=== PATIENT | female | born 1985 | race Caucasian/White ===

== ENCOUNTER → 2020-02-07 | Outpatient (REF) | payer OTHER ==
[~2020-02-07] MED LIST: PRENTAB29; VENTAER INH
[2020-02-07 15:56] LABS: HEMATOCRIT 43.6 % (36.0-47.0); MEAN CORPUSCULAR HEMOGLOBIN 28.1 pg (27.0-33.0); MEAN CORPUSCULAR HGB CONC 32.1 g/dl (32.0-36.5); MEAN CORPUSCULAR VOLUME 87.4 fl (80.0-96.0); PLATELET COUNT, AUTOMATED 256 10^3/uL (150-450); RED BLOOD COUNT 4.99 10^6/uL (4.00-5.40); WHITE BLOOD COUNT 8.9 10^3/uL (4.0-10.0)
[2020-02-07 16:40] LABS: HEPATITIS C VIRUS ABY INDEX 0.1 INDEX (<0.8); HIV 1&2 SCREEN CENTAUR NEGATIVE (NEGATIVE)
[2020-02-07 22:13] LABS: CHLAMYDIA DNA AMPLIFICATION NEGATIVE (NEGATIVE); GC DNA AMPLIFICATION NEGATIVE (NEGATIVE)
== END ==
LOC: M PLALAB 13:32
PROVIDERS: ATTEND Advanced Practice Midwife
DX: O34.211 Maternal care for low transverse scar from previous cesarean delivery (principal); Z3A.00 Weeks of gestation of pregnancy not specified
CPT/HCPCS: 36415; 85027; 86762; 86780; 86803; 86850; 86900; 86901; 87086; 87340; 87389; 87491; 87591; G0463

== ENCOUNTER → 2020-03-20 | Outpatient (CLI) | payer OTHER ==
--- NOTE | 2020-05-01 07:21 | REP ---
OB ULTRASOUND ANATOMY SCAN: FINDINGS: Real time ultrasound evaluation of the gravid uterus is performed. There is a single living intrauterine gestation. Estimated gestational age based on last menstrual period is 18 weeks 4 days. Today's measurements appear to indicate appropriate growth, average ultrasound age 19 weeks 2 days with EDC 08/12/20. BIOMETRY CHART: BPD 45 mm 19 weeks 5 days Head circumference 167 mm 19 weeks 3 days Abdominal circumference 136 mm 19 weeks 1 day Femur length 29 mm 18 weeks 6 days Estimated weight is 269 grams, which is at the 70th percentile based on an estimated age of 18 weeks 4 days from the last menstrual period. position is cephalic. Placenta is anterior and grade 1 with no previa or abruption. The visualized anatomy today includes the posterior fossa, three vessel cord, lateral ventricles, stomach, cord insertion, thalami, kidneys, bladder and upper lip. The spine, four chamber heart and ventricular outflow tracts are not well visualized due to position. Amniotic fluid appears within normal limits. The cervix is closed and measures 4 cm in length. MTDD
== END ==
LOC: M RAD 15:23
PROVIDERS: ATTEND Advanced Practice Midwife
DX: Z34.82 Encounter for supervision of other normal pregnancy, second trimester (principal); Z3A.19 19 weeks gestation of pregnancy

== ENCOUNTER 2020-04-16 10:06 | Emergency (ER) | payer OTHER ==
[~2020-04-16] VITALS: Ht 160 cm; Wt 92.2 kg
[2020-04-16] MEDS ORDERED: PRENTAB29 (10:13)
[2020-04-16] MEDS ORDERED: ALBUTEROL 90 MCG/ACT 8GM HFA INHALER INH ONE (11:15)
--- NOTE | 2020-04-16 12:18 | REPVR ---
PROCEDURE INFORMATION: Exam: US Duplex Lower Extremity Veins, Bilateral Exam date and time: 04/16/2020 12:13 PM Age: 34 years old Clinical indication: Other: SOB, TECHNIQUE: Imaging protocol: Real-time duplex ultrasound of the extremities with 2-D wasserman scale, color Doppler flow and spectral waveform analysis with image documentation. Complete exam focused on the bilateral lower extremity veins. COMPARISON: No relevant prior studies available. FINDINGS: Right deep veins: The common femoral, duplicated femoral, proximal profunda femoral and popliteal veins are patent without thrombus. Normal Doppler waveforms. Normal compressibility and/or augmentation response. The posterior tibial vein in the calf is patent as well. Right superficial veins: Saphenofemoral junction is patent without thrombus. Left deep veins: Unremarkable. The common femoral, femoral, proximal profunda femoral and popliteal veins are patent without thrombus. Normal Doppler waveforms. Normal compressibility and/or augmentation response. The posterior tibial vein in the calf is patent as well. Left superficial veins: Saphenofemoral junction is patent without thrombus. Soft tissues: Unremarkable. IMPRESSION: No deep venous thrombus demonstrated in either lower extremity. Electronically signed by: Hunter Hollins On 04/16/2020 12:17:33 PM
[2020-04-16 13:52] LABS: BASO % 0.3 % (0.0-1.0); EOS # 0.2 10^3/uL (0.0-0.5); EOS % 1.7 % (0.0-3.0); HEMOGLOBIN 13.1 g/dl (12.0-15.5); LYMPH # 1.8 10^3/uL (1.5-5.0); LYMPH % 17.4 % (24.0-44.0); MEAN CORPUSCULAR HEMOGLOBIN 27.9 pg (27.0-33.0); MEAN CORPUSCULAR HGB CONC 32.8 g/dl (32.0-36.5); MEAN CORPUSCULAR VOLUME 85.3 fl (80.0-96.0); MONO # 0.5 10^3/uL (0.0-0.8); MONO % 4.5 % (0.0-5.0); NEUTROPHILS % 75.7 % (36.0-66.0); PLATELET COUNT, AUTOMATED 250 10^3/uL (150-450); RED BLOOD COUNT 4.69 10^6/uL (4.00-5.40); WHITE BLOOD COUNT 10.6 10^3/uL (4.0-10.0)
[2020-04-16 14:11] LABS: BLOOD UREA NITROGEN 6 MG/DL (7-18); CALCIUM LEVEL 8.9 MG/DL (8.5-10.1); CARBON DIOXIDE LEVEL 21 MEQ/L (21-32); CHLORIDE LEVEL 108 MEQ/L (98-107); GLOMERULAR FILTRATION RATE > 60.0 (>60); GLUCOSE, FASTING 71 MG/DL (70-100); NT-PRO BNP 62 PG/ML (<125); POTASSIUM SERUM 4.2 MEQ/L (3.5-5.1); SODIUM LEVEL 136 MEQ/L (136-145)
[2020-04-16] MEDS ORDERED: VENTAER INH (14:23)
[2020-04-16 14:30] VITALS: BP 105/68
== END 2020-04-16 14:42 | disposition home or self-care (01) ==
LOC: M ED 10:06
DX: O99.512 Diseases of the respiratory system complicating pregnancy, second trimester (principal); O26.812 Pregnancy related exhaustion and fatigue, second trimester; Z3A.22 22 weeks gestation of pregnancy; Z79.899 Other long term (current) drug therapy; Z79.51 Long term (current) use of inhaled steroids

== ENCOUNTER → 2020-04-30 | Outpatient (CLI) | payer OTHER ==
--- NOTE | 2020-05-09 10:56 | REP ---
OBSTETRIC SONOGRAPHY HISTORY: Follow up anatomy. Comparison study March 20, 2020. FINDINGS: Scanning through the gravid uterus demonstrates a single living intrauterine gestation in a cephalic lie. motion was observed, and heart rate was recorded at 144 beats per minute. An anterior grade 1 placenta was seen without evidence of previa or abruption. Amniotic fluid was subjectively normal. Closed cervical length was measured transabdominally at 4.5 cm. spine, four chamber heart, and left ventricular outflow tract views were visualized today and appeared normal. The following additional anatomic structures were identified and are felt to be unremarkable: Face and profile nose and lips, diaphragm, left-sided stomach, bilateral kidneys, urinary bladder, spine, three vessel cord. BIOMETRY CHART: BPD 6.3 cm 25 weeks 2 days Head Circumference 22.6 cm 24 weeks 5 days Abdominal Circumference 20.1 cm 24 weeks 5 days Femur Length 4.7 cm 25 weeks 5 days Humeral Length 4.1 cm 24 weeks 6 days HC/AC ratio normal 1.13. Cephalic index normal at 0.78. Estimated weight 771 grams, 1 pound 11 ounces, 73rd percentile for 24 weeks 3 days. IMPRESSION: Single living intrauterine gestation at 25 weeks 0 days by todays composite criteria. KRISHNA by todays criteria August 13, 2020. In conjunction with the prior study, anatomic survey is felt to be complete with the exception of right ventricular cardiac outflow tract view. MTDD
== END ==
LOC: M WHC 07:29
PROVIDERS: ATTEND Obstetrics & Gynecology
DX: Z34.92 Encounter for supervision of normal pregnancy, unspecified, second trimester (principal); Z3A.25 25 weeks gestation of pregnancy

== ENCOUNTER → 2020-06-10 | Outpatient (CLI) | payer OTHER ==
[2020-06-10 13:04] LABS: HEMATOCRIT 42.1 % (36.0-47.0); HEMOGLOBIN 13.4 g/dl (12.0-15.5); MEAN CORPUSCULAR HEMOGLOBIN 27.1 pg (27.0-33.0); MEAN CORPUSCULAR HGB CONC 31.8 g/dl (32.0-36.5); MEAN CORPUSCULAR VOLUME 85.1 fl (80.0-96.0); PLATELET COUNT, AUTOMATED 275 10^3/uL (150-450); RED BLOOD COUNT 4.95 10^6/uL (4.00-5.40); WHITE BLOOD COUNT 10.8 10^3/uL (4.0-10.0)
== END ==
LOC: M PLALAB 08:22
PROVIDERS: ATTEND Obstetrics & Gynecology
DX: Z34.82 Encounter for supervision of other normal pregnancy, second trimester (principal)
CPT/HCPCS: 36415; 82950; 85027; 86850; 86900; 86901; G0463

== ENCOUNTER → 2020-07-29 | Outpatient (REF) | payer OTHER | LOC: M SFHCWAGY 13:12 | PROVIDERS: ATTEND Obstetrics & Gynecology | DX: Z36.89 Encounter for other specified antenatal screening (principal); Z3A.37 37 weeks gestation of pregnancy | CPT/HCPCS: 87081; G0463 ==

== ENCOUNTER 2020-08-09 09:41 | Outpatient (CLI) | payer OTHER ==
[~2020-08-09] VITALS: Ht 160 cm; Wt 99.0 kg
[2020-08-09 09:59] VITALS: BP 126/78
--- NOTE | 2020-08-09 11:29 | IPNPDOC ---
Text Note Date of Service The patient was seen on 08/09/20. NOTE Subjective: Radha is a 35-year-old female who is a at 38.5 weeks gestation who presented to L&D with complaints of changes in movement. She reports having only 2 movements in the last 1 hour. Her has been complicated by a history of a primary section. She has a successful in 2019. She denies vaginal bleeding, current contractions or leaking of fluid. She reported some contractions last night but currently denies them. OB Hx: 2017: primary section at 41.4 weeks gestation of a living female weighting 9 lbs 10 oz.; 2019 of living male at 40.4 weeks gestation weighting 8 lbs 7 oz Medical Hx: goiter, varicella as a child Surgical Hx: section Family Hx: non-contributory Social Hx: , denies any history of STD, denies being a smoker, drug use or abuse or alcohol use during . Denies history of abuse. Objective: VS: see below. FHR: 130, moderate variability, positive accelerations, no decelerations. contractions: irregular. SVE: 1/thick/high, soft, midposition, no show. Bedside ultrasound done showing active fetus in cephalic presentation. ABDULLAHI 20.1 cm. Breathing motions also noted. APFT is normal and reassuring. Placenta anterior. Assessment: IUP at 38.5 weeks gestation, decreased movement, Category I FHR tracing. Plan: After being in department patient reported feeling multiple movements. She is reassured and discharged to home. She has an appointment this week in the office. Reviewed access to care, kick count, labor signs, and danger signs to report. VS,Fishbone, I+O VS, Fishbone, I+O Vital Signs Date Time Temp Pulse Resp B/P (MAP) Pulse Ox O2 Delivery O2 Flow Rate FiO2 08/09/20 10:00 96 08/09/20 09:59 98.0 16 126/78 (94) LUZ BLAND CNM Aug 09, 2020 11:29
== END 2020-08-09 11:15 | disposition home or self-care (01) ==
LOC: M LDO 09:41
PROVIDERS: ATTEND Advanced Practice Midwife
DX: O36.8130 Decreased fetal movements, third trimester, not applicable or unspecified (principal); Z3A.38 38 weeks gestation of pregnancy
CPT/HCPCS: 59025; 76815; G0378; G0463

== ENCOUNTER 2020-08-19 23:04 | Inpatient (IN) | payer OTHER ==
[~2020-08-19] VITALS: Ht 160 cm; Wt 101.9 kg
--- OUTSIDE RECORDS SUMMARY | 2020-08-19 23:08 | CCD ---
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 Name Role Phone BarretoLazarus michael Unavailable PROBLEMS Type Condition ICD9-CM Code [id number] Code Onset Dates Condition S tatus SNOMED Code Notes Problem Supervision of other normal Z34.80 Ac tive [id number] ALLERGIES No Known Allergies ENCOUNTERS from 1987 to 2020-06-25 Encounter Location Date Provider Diagnosis [facility] Breast [facility] [place] [address] Jun, Lazarus Barreto Maternal care due to low transverse uterine scar from previous delivery O34.211 and 30 weeks gestation of Z3A.30 IMMUNIZATIONS Vaccine Route Administration Date Status TDAP 0.5mL (Boostrix) IM Intramuscular Jun 24, 2020 Administe red SOCIAL HISTORY Tobacco Use: Social History Observation Description Date Details (start date - stop date) Never Smoker Sex Assigned At : Social History Observation Description Sex Assigned At Unknown Domestic Violence: Question Answer Notes Status: No history of abuse Alcohol Screening: Question Answer Notes Did you have a drink containing alcohol in the past year? Ye s Points 1 Interpretation Negative How often did you have six or more drinks on one occas ion in the past year? Never (0 points) How many drinks did you have on a typica l day when you were drinking in the past year? 1 or 2 (0 points) How often did you have a drink containing alcohol in t he past year? Monthly or less (1 point) Tobacco Use: Question Answer Notes Are you a: never smoker REASON FOR REFERRAL No Information VITAL SIGNS Weight 212.0 lbs Jun, Height 63 in Jun, BMI 37.554 kg/m2 Jun, Blood pressure systolic 112 mm Hg Jun, Blood pressure diastolic 76 mm Hg Jun, MEDICATIONS Medication SIG (Take, Route, Frequency, Duration) Notes Start Da te End Date Status Apple Cider Vinegar 500 MG as directed Orally Active 27-1 MG 1 tablet Orally Once a day Active Elderberry 575 MG/5ML as directed Orally Active PROCEDURES No Information RESULTS No Results REASON FOR VISIT 4 WK PN MEDICAL (GENERAL) HISTORY Type Description Date Medical History goiter Surgical History C section Hospitalization History childbirth Goals Section No Information Health Concerns No Information MEDICAL EQUIPMENT No Information MENTAL STATUS No Information FUNCTIONAL STATUS No Information ASSESSMENTS Encounter Date Diagnosis Assessment Notes Treatment Notes Treatm ent Clinical Notes Jun, Maternal care due to low tra nsverse uterine scar from previous delivery (ICD-10 - O34.211) Jun, 30 weeks gestation of (ICD-10 - Z3A.30 ) PLAN OF TREATMENT Next Appt Details 2 Weeks Reason:follow-up Provider Name:Christiano Sarabia 2020-07-11 11:40:00 AM, [address] [place] [address], [phone], Follow Up:2 Weeksfollow-up Insurance Providers Payer Name Payer Address Payer Phone Insured Name Patient Relati onship to Insured Coverage Start Date Coverage End Date [place] [phone] MAHIN LORA self
--- OUTSIDE RECORDS SUMMARY | 2020-08-19 23:08 | CCD ---
Author Author [facility] Organization [facility] Address Unknown Phone Unavailable Care Team Providers Care Assembler Flexible Leads Name Role Phone Billie Castanon Unavailable PROBLEMS Type Condition ICD9-CM Code ZRG05-DE Code Onset Dates Condition S tatus SNOMED Code Notes Problem Supervision of other normal Z34.80 Ac tive [id number] ALLERGIES No Known Allergies ENCOUNTERS from 1987 to 2020-06-26 Encounter Location Date Provider Diagnosis [facility] [address] [place] [phone] Jun, Billie Castanon IMMUNIZATIONS Vaccine Route Administration Date Status TDAP [...] REASON FOR REFERRAL No Information VITAL SIGNS No information MEDICATIONS Medication SIG (Take, Route, Frequency, Duration) Notes Start Da te End Date Status Apple Cider Vinegar 500 MG as directed Orally Active 27-1 MG 1 tablet Orally Once a day Active Elderberry 575 MG/5ML as directed Orally Active PROCEDURES No Information RESULTS No Results REASON FOR VISIT fell MEDICAL (GENERAL) HISTORY Type Description Date Medical History goiter Surgical History C section Hospitalization History childbirth Goals Section No Information Health Concerns No Information MEDICAL EQUIPMENT No Information MENTAL STATUS No Information FUNCTIONAL STATUS No Information ASSESSMENTS No Information PLAN OF TREATMENT Next Appt Details Provider Name:Christiano Adriana Sarabia, 2020-07-11 11:40:00 AM, [facility] [place], [address], Insurance Providers Payer Name Payer Address Payer Phone Insured Name Patient Relati onship to Insured Coverage Start Date Coverage End Date [place] [phone] MAHIN LORA self
--- OUTSIDE RECORDS SUMMARY | 2020-08-19 23:08 | CCD ---
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 Name Role Phone Christiano Sarabia Unavailable PROBLEMS Type Condition ICD9-CM Code SFW63-PE Code Onset Dates Condition S tatus SNOMED Code Notes Problem Supervision of other normal Z34.80 Ac tive [id number] ALLERGIES No Known Allergies ENCOUNTERS from 1987 to 2020-07-19 Encounter Location Date Provider Diagnosis [facility] Women[facility] Well[facility] and Breast Care [facility] [place] [address] Jul, Christiano Sarabia Maternal care for sc ar from previous delivery O34.219 and 34 weeks gestation of Z3A.34 IMMUNIZATIONS Vaccine Route Administration Date Status TDAP [...] FOR REFERRAL No Information VITAL SIGNS Weight 209.6 lbs Jul, Weight-kg 95.07 kg Jul, Height 63 in Jul, BMI 37.129 kg/m2 Jul, Blood pressure systolic 112 mm Hg Jul, Blood pressure diastolic 82 mm Hg Jul, MEDICATIONS Medication SIG (Take, Route, Frequency, Duration) Notes Start Da te End Date Status Elderberry 575 MG/5ML as directed Orally Active 27-1 MG 1 tablet Orally Once a day Active Apple Cider Vinegar 500 MG as directed Orally Active PROCEDURES No Information RESULTS No Results REASON FOR VISIT 2WK PN MEDICAL (GENERAL) HISTORY Type Description Date Medical History goiter Surgical History C section Hospitalization History childbirth Goals Section No Information Health Concerns No Information MEDICAL EQUIPMENT No Information MENTAL STATUS No Information FUNCTIONAL STATUS No Information ASSESSMENTS Encounter Date Diagnosis Assessment Notes Treatment Notes Treatm ent Clinical Notes Jul, Maternal care for scar from previous delivery (ICD-10 - O34.219) Jul, 34 weeks gestation of (ICD-10 - Z3A.34 ) PLAN OF TREATMENT Next Appt Details Provider Name:Lazarus Barreto, 10:20:00 AM, [address] [place] [address], [phone], Provider Name:Lazarus Barreto, 08:00:00 AM, [address] [place] [address], [phone], Provider Name:Guerda Hubbard, 2020-08-15 08:40:00 AM, [address] [place] [address], [phone], Insurance Providers Payer Name Payer Address Payer Phone Insured Name Patient Relati onship to Insured Coverage Start Date Coverage End Date [address] [phone] MAHIN LOR[place] self
--- OUTSIDE RECORDS SUMMARY | 2020-08-19 23:08 | CCD ---
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 Name Role Phone BarretoLazarus michael Unavailable PROBLEMS Type Condition ICD9-CM Code OCA49-JZ Code Onset Dates Condition S tatus SNOMED Code Notes Problem Supervision of other normal Z34.80 Ac tive [id number] ALLERGIES No Known Allergies ENCOUNTERS from 1987 to 2020-07-31 Encounter Location Date Provider Diagnosis [facility] Women's Wellness and Breast Care [facility] [place] [address] Jul, Lazarus Barreto Maternal care due to low transverse uterine scar from previous delivery O34.211 and 37 weeks gestation of Z3A.37 IMMUNIZATIONS Vaccine Route Administration Date Status TDAP [...] FOR REFERRAL No Information VITAL SIGNS Weight 215 lbs Jul, Height 63 in Jul, BMI 38.086 kg/m2 Jul, Blood pressure systolic 118 mm Hg Jul, Blood pressure diastolic 62 mm Hg Jul, MEDICATIONS Medication SIG (Take, Route, Frequency, Duration) Notes Start Da te End Date Status 27-1 MG 1 tablet Orally Once a day Active Apple Cider Vinegar 500 MG as directed Orally Active Elderberry 575 MG/5ML as directed Orally [...] Treatm ent Clinical Notes Jul, Maternal care due to low tra nsverse uterine scar from previous delivery (ICD-10 - O34.211) Jul, 37 weeks gestation of (ICD-10 - Z3A.37 ) PLAN OF TREATMENT Treatment Notes Test Name Order Date GROUP B STREP CULTURE 2020-07-31 Next Appt Details 1 Week Reason:follow-up Provider Name:Lazarus Barreto, 08:00:00 AM, [address] [place] [address], [phone], Provider Name:Guerda Hubbard, 2020-08-15 08:40:00 AM, [address] [place] [address], [phone], Follow Up:1 Weekfollow-up Insurance Providers Payer Name Payer Address Payer Phone Insured Name Patient Relati onship to Insured Coverage Start Date Coverage End Date [place] [phone] MAHIN LORA self
--- OUTSIDE RECORDS SUMMARY | 2020-08-19 23:08 | CCD ---
Author Author [facility] Organization [facility] Address Unknown Phone Unavailable Support Name Relationship Address Phone UE Next Of Kin Unknown Unavailable LUI LORA Next Of Kin [id number] [facility] [place] [address] LUI LORA [place], [place] Unavailable Re-disclosure Warning The records that you are about to access may contain information from federally-assisted alcohol or drug abuse programs. If such information is present, then the following federally mandated warning applies: This information has been disclosed to you from records protected by federal confidentiality rules (42 CFR part 2). The federal rules prohibit you from making any further disclosure of this information unless further disclosure is expressly permitted by the written consent of the person to whom it pertains or as otherwise permitted by 42 CFR part 2. A general authorization for the release of medical or other information is NOT sufficient for this purpose. The Federal rules restrict any use of the information to criminally investigate or prosecute any alcohol or drug abuse patient.The records that you are about to access may contain highly sensitive health information, the redisclosure of which is protected by Article 27-F of the [place] Public Health law. If you continue you may have access to information: Regarding HIV / AIDS; Provided by facilities licensed or operated by the [employer] Office of Mental Health; or Provided by the [employer] Office for People With Developmental Disabilities. If such information is present, then the following [employer] mandated warning applies: This information has been disclosed to you from confidential records which are protected by state law. State law prohibits you from making any further disclosure of this information without the specific written consent of the person to whom it pertains, or as otherwise permitted by law. Any unauthorized further disclosure in violation of state law may result in a fine or half-way sentence or both. A general authorization for the release of medical or other information is NOT sufficient authorization for further disc losure. Encounters Encounter Providers Location Date Indications Data Source(s ) ( ESTOB) [facility] [address] [place] [address] 08/05/2020 12:00:00 AM EST eCW1 ([facility]) ( ESTOB) [facility] [address] [place] [address] 07/29/2020 12:00:00 AM EST eCW1 ([facility]) ( ESTOB) [facility] [address] [place] [address] 07/11/2020 12:00:00 AM EST eCW1 ([facility]) Unknown [address] [facility] [address] 06/26/2020 12:00:00 AM EST eCW1 ([facility]) ( ESTOB) [facility] [address] [place] [address] 06/10/2020 12:00:00 AM EST eCW1 ([facility]) Immunizations Vaccine Date Status Description Data Source(s) Tdap 06/24/2020 09:08:00 AM EST completed e CW1 ([facility]) Tdap 06/24/2020 09:08:00 AM EST completed e CW1 ([facility]) Tdap 06/24/2020 09:08:00 AM EST completed e CW1 ([facility]) Tdap 06/24/2020 09:08:00 AM EST completed e CW1 ([facility]) Tdap 06/24/2020 09:08:00 AM EST completed e CW1 ([facility]) Insurance Providers Payer name Policy type / Coverage type Policy ID Covered democrat ID Covered democrat's relationship to enriquez Policy Enriquez Plan Information [facility] [id number] SP [id number] [facility] [id number] SP [id number] Problems, Conditions, and Diagnoses Code Display Name Description Problem Type Effective Dates Data Source(s) Z34.80 care Supervision of other normal Adriana kelley 02/06/2020 12:00:00 AM EDT eCW1 ([facility]) Social History Code Duration Value Status Description Data Source(s ) Smoking 08/12/2020 12:00:00 AM EST Never Smoker completed Never S moker eCW1 ([facility]) Smoking 07/26/2020 12:00:00 AM EST Never Smoker completed Never S moker eCW1 ([facility]) Smoking 07/01/2020 12:00:00 AM EST Never Smoker completed Never S moker eCW1 ([facility]) Smoking 06/20/2020 12:00:00 AM EST Never Smoker completed Never S moker eCW1 ([facility]) Smoking 06/20/2020 12:00:00 AM EST Never Smoker completed Never S moker eCW1 ([facility]) Vital Signs ID Date Data Source UNK Name Value Range Interpretation Code Description Data Source(s) Diastolic blood pressure 68 mm[Hg] 68 mm[Hg] eCW1 ([facility]) Systolic blood pressure 122 mm[Hg] 122 mm[Hg] e CW1 ([facility]) Body mass index (BMI) [Ratio] 38.26 kg/m2 38.26 kg/m2 W1 ([facility]) Body height 63 [in_i] 63 [in_i] W1 ([facility]) Body weight 216 [lb_av] 216 [lb_av] W1 ([facility]) Diastolic blood pressure 62 mm[Hg] 62 mm[Hg] eCW1 ([facility]) Systolic blood pressure 118 mm[Hg] 118 mm[Hg] e CW1 ([facility]) Body mass index (BMI) [Ratio] 38.086 kg/m2 38.0 86 kg/m2 W1 ([facility]) Body height 63 [in_i] 63 [in_i] W1 ([facility]) Body weight 215 [lb_av] 215 [lb_av] W1 ([facility]) Diastolic blood pressure 82 mm[Hg] 82 mm[Hg] eCW1 ([facility]) Systolic blood pressure 112 mm[Hg] 112 mm[Hg] e CW1 ([facility]) Body mass index (BMI) [Ratio] 37.129 kg/m2 37.1 29 kg/m2 eCW1 ([facility]) Body height 63 [in_i] 63 [in_i] eCW1 ([facility]) Body weight 95.07 kg 95.07 kg W1 ([facility]) Body weight 209.6 [lb_av] 209.6 [lb_av] eCW1 ([facility]) Diastolic blood pressure 76 mm[Hg] 76 mm[Hg] eCW1 ([facility]) Systolic blood pressure 112 mm[Hg] 112 mm[Hg] e CW1 ([facility]) Body mass index (BMI) [Ratio] 37.554 kg/m2 37.5 54 kg/m2 W1 ([facility]) Body height 63 [in_i] 63 [in_i] eCW1 ([facility]) Body weight 212.0 [lb_av] 212.0 [lb_av] eCW1 ([facility])
--- OUTSIDE RECORDS SUMMARY | 2020-08-19 23:08 | CCD ---
Author Author [facility] Organization [facility] Address Unknown Phone Unavailable Care Team Providers Care Healthcare Interpreter Name Role Phone BarretoLazarus michael Unavailable PROBLEMS Type Condition ICD9-CM Code RWH59-GT Code Onset Dates Condition S tatus SNOMED Code Notes Problem Supervision of other normal Z34.80 Ac tive [id number] ALLERGIES No Known Allergies ENCOUNTERS from 1987 to 2020-08-14 Encounter Location Date Provider Diagnosis [facility] [place] [address] Jul, Lazarus Barreto Maternal care due to low transverse uterine scar from previous delivery O34.211 and 38 weeks gestation of Z3A.38 IMMUNIZATIONS Vaccine Route Administration Date Status TDAP [...] FOR REFERRAL No Information VITAL SIGNS Weight 216 lbs Jul, Height 63 in Jul, BMI 38.26 kg/m2 Jul, Blood pressure systolic 122 mm Hg Jul, Blood pressure diastolic 68 mm Hg Jul, MEDICATIONS Medication SIG (Take, Route, Frequency, Duration) Notes Start Da te End Date Status Elderberry 575 MG/5ML as directed Orally Active Apple Cider Vinegar 500 MG as directed Orally Active 27-1 MG 1 tablet Orally Once a day Active PROCEDURES No Information RESULTS No Results REASON FOR VISIT 1WK PN MEDICAL (GENERAL) HISTORY Type Description Date [...] from previous delivery (ICD-10 - O34.211) Jul, 38 weeks gestation of (ICD-10 - Z3A.38 ) PLAN OF TREATMENT Next Appt Details Provider Name:Guerda Hubbard, 2020-08-15 08:40:00 AM, [address] [place] [address], [phone], Insurance Providers Payer Name Payer Address Payer Phone Insured Name Patient Relati onship to Insured Coverage Start Date Coverage End Date [place] [phone] MAHIN LORA self
[2020-08-20] VITALS (8 sets, daily range): BP systolic 113–139; BP diastolic 56–63
[2020-08-20] MEDS ORDERED: LACTATED RINGER'S 1000 ML IV STA (00:07)
[2020-08-20] MEDS ORDERED: LR 1,000 ML IV SCH ×3 (00:07→05:00)
[2020-08-20] MEDS ORDERED: OXYTOCIN DRIP 30 UNITS in IV 1 EA IV SCH ×2 (00:15→04:34)
--- NOTE | 2020-08-20 00:29 | HPEPDOC ---
Obstetrical History & Physical General Date of Admission Aug 19, 2020 at 23:04 Primary Care Physician: LUZ BLAND CNM History of Present Illness Radha is a 35 y/o at 40.1 weeks KRISHNA 08/18/20 by LMP. She started care in the first trimester at [facility]. has been uncomplicated. Presents to L&D today for IOL for history of macrosomia and TOLAC. Previous C/Section with 1st , then with 2nd . Reports active movement and BH contractions. Denies LOF, vaginal bleeding, visual changes, headache, SOB, and chest pain. Chief Complaint: Induction of labor (TOLAC, history of macrosomia) Information Provided By: Patient Age: 35 : 3 Term: 2 Pre-term: 0 Abortions: 0 Livin Care Care: Good Care Dating Final EDC: Aug 18, 2019 Final EDC by: LMP LMP: Nov 12, 2019 EGA at Admission: 40.1 Antepartum Course Height (inches): 63 Past Medical History Past Obstetrical History #1: Past Obstetrical History: Primgravida (2017) Type of Delivery: Ceserean section (2017 Posterior position- pushed for 4hrs) Sex of Infant: Female (9lb 10oz.) Past Obstetrical History #2: Past Obstetrical History: Multigravida Type of Delivery: Spontaneous Vaginal Del. ( 2018) Sex of Infant: Male (8lb. 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 Surgical History: section (2016) Family History Significant Family History: No pertinent family hx Social History Marital Status: Family situation: Spouse/partner home Psychosocial History: No pertinent psych hx * Smoker: non-smoker Alcohol: Denies Drugs: denies Imunizations Tdap status: current Influenza Status: current Allergies Coded Allergies: No Known Allergies (Unverified , 04/16/20) Medications Miscellaneous Medications [] Physical Examination Physical Examination GENERAL: Alert and oriented times three. ABDOMEN: Gravid and non-tender to touch. FETUS: Is vertex (VTX) by sterile vaginal examination (SVE), fetus is vertex (VTX) by Ezekiel. EFW 8.5-9lbs by Sissy. HEART RATE: Regular rate and rhythm. LUNGS: Clear to auscultation (CTA) bilaterally. EXTREMITIES: No edema. No clonus. Deep tendon reflexes (DTRs) + 2. Laboratory Data 24H LABS Laboratory Tests 2 08/19/20 23:12: Serology Scanned Report Hepatitis B Testing Urine Culture: No Growth Pertinent Laboratoy Data Blood Type: O+ RBC Antibody Screen: Negative HIV: Negative Hepatitis B: Negative Hepatitis C: Negative Rapid Plasma Reagin: Nonreactive Rubella: Immune Varicella: Nonreactive Chlamydia/Gonorrhea: Negative Group B Streptococcus: Negative Glucose Tolerance Test: 85 Steroid Therapy Steroid Therapy: No Vaginal Examination Dilation: 3 cm Effacement: 50% Station: -2 Cervical Consistency: Soft Cervical Position: Middle Presentation: Cephalic presentation Assessment Heart Rate (FHR): 130 Variability: Moderate Accelerations: Positive Decelerations: None Tocometer Contractions: Yes Frequency: irregular, other (6-9min.) Duration: greater than 60 seconds Strength: palpated as mild, resting tone palp/soft Multi-drug resistant Organism: No history of MDRO Assessment/Plan Assessment IUP at 40.1wks. TOLAC, previous successful Category 1 FHT GBS Negative Plan Admit and orient to Labor and Delivery, Dr. Bautista aware of patient in the depa rtment. Activity as tolerated Diet: Clear liquids. Group B Streptococcus (GBS) negative. Labs and intravenous (IV) per unit protocol. Counseled on Pitocin and Turcios bulb for induction of labor (IOL). Cook's catheter inserted and 70/30mL NS and IV Pitocin to start per order. Reviewed risks, benefits, and alternatives of a TOLAC versus a Repeat C/Section Lactated Ringers (LR): Bolus 800 mL prior to epidural. Anesthesia consult per patient request. Anticipate normal spontaneous delivery (). C-S as appropriate. LUZ BLAND CNM Aug 20, 2020 00:07
[2020-08-20 00:52] LABS: HEMATOCRIT 39.9 % (36.0-47.0); HEMOGLOBIN 12.5 g/dl (12.0-15.5); MEAN CORPUSCULAR HEMOGLOBIN 25.6 pg (27.0-33.0); MEAN CORPUSCULAR HGB CONC 31.3 g/dl (32.0-36.5); MEAN CORPUSCULAR VOLUME 81.8 fl (80.0-96.0); PLATELET COUNT, AUTOMATED 280 10^3/uL (150-450); RED BLOOD COUNT 4.88 10^6/uL (4.00-5.40); WHITE BLOOD COUNT 11.5 10^3/uL (4.0-10.0)
[2020-08-20 01:21] LABS: FREE T4 1.28 NG/DL (0.76-1.46); THYROID STIMULATING HORMONE < 0.005 uIU/ML (0.358-3.740)
[2020-08-20] MEDS ORDERED: ceFAZolin 2 GM/D5W 50 ML IV BAG (J0690 PER 500MG) As Ordered ONE (03:30)
[2020-08-20] MEDS ORDERED: fentaNYL 100 MCG/2 ML INJECTION (J3010) As Ordered ONE ×3 (03:47→04:44)
[2020-08-20] MEDS ORDERED: ACETAMINOPHEN 1000MG 100ML IV BTL (OFIRMEV) (J0131 PER 10MG) As Ordered ONE (03:47)
[2020-08-20] MEDS ORDERED: propofoL 200 MG/20 ML VIAL As Ordered ONE (03:47)
[2020-08-20] MEDS ORDERED: OXYTOCIN INJ 10 UNITS/ML VIAL (J2590) As Ordered ONE (03:47)
[2020-08-20] MEDS ORDERED: SUCCINYLCHOLINE 100 MG/5 ML SYRINGE (J0330) As Ordered ONE (03:47)
[2020-08-20 03:55] LABS: CORD GAS ABE V -1.7; CORD GAS HCO3 V 24.2 MEQ/L; CORD GAS O2 SAT V 90.5 %; CORD GAS PCO2 V 45.1 mmHg; CORD GAS PH V 7.347 UNITS; CORD GAS PO2 V 48.2 mmHg; CORD GAS SBC V 22.9 MEQ/L; CORD GAS TCO2 V 25.6 MEQ/L
[2020-08-20] MEDS ORDERED: ONDANSETRON 4MG/2ML VIAL As Ordered ONE (03:56)
[2020-08-20] MEDS ORDERED: dexameTHASONE 4 MG/ML 1ML VIAL (J1100 PER 1MG) As Ordered ONE (03:56)
[2020-08-20] MEDS ORDERED: MORPHINE PRES-FREE INJ 10 MG/10 ML VIAL (J2274) As Ordered ONE (04:03)
[2020-08-20] MEDS ORDERED: KETOROLAC 60MG 2ML VIAL As Ordered ONE (04:04)
--- NOTE | 2020-08-20 04:22 | IPNPDOC ---
Obstetrical Progress Note Date of Service Aug 20, 2020 Subjective Patient breathing through contractions, getting uncomfortable. Dr. Bautista called for non-reassuring FHR tracing after multiple attempts to recover FHR with IV Fluid bolus, position changes, and oxygen at 0247 to evaluate patient. Patient received Pitocin for less than 30min, then shut off. Assessment Heart Rate (FHR): 130 Variability: Minimal to moderate Accelerations: None Decelerations: Variable (deceleration to the 60s) Heart Rate Tracing: Category II Tocometer Contractions: Yes Frequency: regular, every 2-5 min. Duration: greater than 60 seconds Strength: palpated as moderate, resting tone palp/soft Sterile Vaginal Examination Dilation: 5 cm (5-6) Effacement (%): 60% Station: Other (High) Cervical Consistency: Soft Cervical Position: Middle Postion/Presentation: Cephalic presentation Assessment and Plan Age: 35 : 3 Term: 2 Pre-term: 0 Abortions: 0 Livin EGA at Admission: 40.1 Weeks & Days 40.2 Status: Non-reassuring Group B Streptococcus: Negative LUZ BLAND CNM Aug 20, 2020 04:22
[2020-08-20] MEDS ORDERED: oxyCODONE 5MG TAB As Ordered ONE (04:44)
[2020-08-20] MEDS ORDERED: KETOROLAC 30 MG/ML 1ML VIAL IV SCH (04:45)
[2020-08-20] MEDS ORDERED: ONDANSETRON 4MG/2ML VIAL IV PRN ×2 (04:45→05:00)
[2020-08-20] MEDS ORDERED: PERCOCET 5MG/325MG TAB PO PRN (04:45)
[2020-08-20] MEDS ORDERED: METHYLERGONOVINE MALEATE 0.2 MG TAB PO PRN (04:45)
[2020-08-20] MEDS ORDERED: MORPHINE 2 MG/ML 1ML VIAL (J2270) IV PRN ×2 (04:45→05:00)
[2020-08-20] MEDS ORDERED: MOM 30ML SUSPENSION UDC PO PRN (04:45)
[2020-08-20] MEDS ORDERED: RHOGAM 300 MCG (1500 IU) INJ (J2790) IM SCH (04:45)
[2020-08-20] MEDS ORDERED: ANUSOL HC CREAM 30GM TOP PRN (04:45)
[2020-08-20] MEDS ORDERED: MEASLES,MUMPS,RUBELLA VACCINE INJ (MMR-II) (90707) SC SCH (04:45)
[2020-08-20] MEDS ORDERED: ceFAZolin SOD 2 GM in IV 1 EA IV ONE (04:55)
--- NOTE | 2020-08-20 04:55 | REPVR ---
PROCEDURE INFORMATION: Exam: XR Abdomen, 1 View Exam date and time: 08/20/2020 4:24 AM Age: 35 years old Clinical indication: Screening exam; Post surgical status; Stat , no count; Additional info: S/P stat section TECHNIQUE: Imaging protocol: XR of the abdomen. Views: Frontal supine view of the abdomen. 1 View. COMPARISON: No relevant prior studies available. FINDINGS: Gastrointestinal tract: Normal. No bowel dilation. Bones/joints: There is widening of the symphysis pubis measuring 1.2 centimetres IMPRESSION: Diastasis of the symphysis pubis measuring up to 1.2 cm in width. No obvious bony fracture seen on this exam although overall evaluation is limited due to body habitus. Electronically signed by: Dean Junior On 08/20/2020 04:56:10 AM
[2020-08-20] MEDS ORDERED: fentaNYL 100 MCG/2 ML INJECTION (J3010) IV PRN (05:00)
[2020-08-20] MEDS ORDERED: oxyCODONE 5MG TAB PO PRN (05:00)
[2020-08-20] MEDS ORDERED: OXYTOCIN 30 UNITS IN 0.9% NaCl 500ML IV BAG (J2590) As Ordered ONE (05:04)
[2020-08-20] MEDS: DOCUSATE SODIUM 100MG CAPSULE PO SCH ×2 (07:52→21:28)
[2020-08-20] MEDS: PRENATAL VITAMINS CHEWABLE TABLET PO SCH (07:53)
[2020-08-20] MEDS: PERCOCET 5MG/325MG TAB PO PRN ×3 (07:53→20:07)
--- NOTE | 2020-08-20 09:36 | RO ---
OPERATIVE NOTE DATE OF OPERATION: 08/20/2020 Juhi is a 35-year-old female who was admitted at 40-3/7 weeks of gestation for trial of labor after section. She underwent Turcios bulb and had some repetitive late decelerations. I was called by the nurse radiologic technician to evaluate the patient. Upon my arrival artificial rupture of membranes was performed to place internal monitors. Thick meconium was noted and also cord prolapse. Given her non-reassuring heart rate tracing and thick meconium remote from delivery the decision was made at this time to proceed with emergent section. Both patient and her partner were counseled. She was then taken to the operating room. PREOPERATIVE DIAGNOSES: 1. Intrauterine at 40-3/7 weeks of gestation with history of prior section. 2. Failed trial of labor after section. 3. Non-reassuring heart rate tracing. 4. Thick meconium. 5. Cord prolapse. POSTOPERATIVE DIAGNOSES: 1. Intrauterine at 40-3/7 weeks of gestation with history of prior section. 2. Failed trial of labor after section. 3. Non-reassuring heart rate tracing. 4. Thick meconium. 5. Cord prolapse. PROCEDURES: 1. Repeat section. 2. Revision of old scar. ANESTHESIA: General. SURGEON: Jesus Bautista MD PERSONNEL CLERK: Steff Bethea CNM COMPLICATIONS: None. ESTIMATED BLOOD LOSS: 700 mL. FINDINGS: Male infant in occiput transverse position, Apgars 2, 4, 8, weight 8 pounds 3 ounces. Normal appearing tubes and ovaries. We were unable to obtain arterial cord gas but venous cord gas was done of 7.21. PROCEDURE: After discussing the procedure with the patient and obtaining informed consent, she was taken to the operating room where abdominal prep was done and general anesthesia was given. We then proceeded with incision over her old scar, down to the fascia. With the help of Steff Bethea with giving proper pressures from below, I then opened the fascia as well as the muscles in midline fashion, peritoneal cavity was entered, Mobius skin retractor was placed. Low transverse uterine incision was made, was delivered atraumatic fashion. The nose and mouth were bulb suctioned, cord doubly clamped and cut and infant was handed over to waiting warmer. Cord blood and cord gas were sent. Steff Bethea rescrubbed and came back to the patient side to assist with the section. We then closed the uterine incision in two layers of #0 Vicryl sutures. Pelvis was copiously irrigated with normal saline and suctioned out. Attention was turned to the peritoneum which was closed in running fashion using 2-0 Vicryl, fascia closed in two separate segments of #0 Vicryl sutures. All superficial bleeders were coagulated and the skin was then reapproximated in subcuticular fashion using 3-0 Vicryl on Cuco. Steri-Strips were placed. The patient tolerated the procedure well, she was transferred to the recovery room in stable condition. cc: [facility]
[2020-08-20] MEDS: KETOROLAC 30 MG/ML 1ML VIAL IV SCH ×3 (09:58→21:28)
[2020-08-21] MEDS: PERCOCET 5MG/325MG TAB PO PRN ×3 (01:32→15:35)
[2020-08-21 02:15] VITALS: BP 111/53
[2020-08-21] MEDS: IBUPROFEN 800 MG TAB PO SCH ×3 (05:54→21:51)
[2020-08-21 06:25] VITALS: BP 103/68
--- NOTE | 2020-08-21 06:38 | IPNPDOC ---
Progress Note Date of Service: Aug 21, 2020 Day#: 1 Progress Note SUBJECT: Doing well without complaints. Ambulating, voiding and pain is well-c ontrolled. Reports minimal lochia. OBJECTIVE: VITAL SIGNS: Within normal limits, afebrile. Alert and oriented times three. Abdomen: Fundus firm at U-2. Soft, NTTP. Incision: dressed Ext: neg calf tenderness. ASSESSMENT: /postoperative day #1 status post delivery. Recovering in stable condition. PLAN: 1. Continue routine /postoperative care 2. Discharge plans for tomorrow VS, I&O, 24H, Fishbone Vital Signs/I&O Vital Signs Date Time Temp Pulse Resp B/P (MAP) Pulse Ox O2 Delivery O2 Flow Rate FiO2 08/21/20 06:25 98.1 100 18 103/68 (80) 08/21/20 02:15 99 Room Air 08/20/20 04:50 2 I&O- Last 24 Hours up to 6 AM 08/21/20 06:00 Output Total 1000 ml Balance -1000 ml CHACE DIXON MD. Aug 21, 2020 06:38
[2020-08-21] MEDS: PRENATAL VITAMINS CHEWABLE TABLET PO SCH (07:49)
[2020-08-21] MEDS: DOCUSATE SODIUM 100MG CAPSULE PO SCH ×2 (07:49→21:51)
[2020-08-21 08:25] LABS: HEMATOCRIT 26.6 % (36.0-47.0); MEAN CORPUSCULAR HEMOGLOBIN 25.7 pg (27.0-33.0); MEAN CORPUSCULAR HGB CONC 30.1 g/dl (32.0-36.5); MEAN CORPUSCULAR VOLUME 85.5 fl (80.0-96.0); PLATELET COUNT, AUTOMATED 215 10^3/uL (150-450); RED BLOOD COUNT 3.11 10^6/uL (4.00-5.40); WHITE BLOOD COUNT 13.4 10^3/uL (4.0-10.0)
[2020-08-21 10:00] VITALS: BP 100/55
[2020-08-21 13:59] VITALS: BP 118/63
[2020-08-21 18:00] VITALS: BP 132/67
[2020-08-21 22:00] VITALS: BP 117/59
[2020-08-22 02:00] VITALS: BP 119/78
[2020-08-22] MEDS: PERCOCET 5MG/325MG TAB PO PRN ×4 (02:13→17:03)
[2020-08-22] MEDS: IBUPROFEN 800 MG TAB PO SCH ×2 (05:33→14:18)
[2020-08-22 06:00] VITALS: BP 112/68
[2020-08-22] MEDS: DOCUSATE SODIUM 100MG CAPSULE PO SCH (08:14)
[2020-08-22] MEDS: PRENATAL VITAMINS CHEWABLE TABLET PO SCH (08:14)
[2020-08-22 08:39] VITALS: BP 112/68
--- NOTE | 2020-08-22 14:42 | DSES ---
DISCHARGE SUMMARY DATE OF ADMISSION: 08/19/2020 DATE OF DISCHARGE: / / DISCHARGE DIAGNOSES: Repeat section postoperative day #2 stable condition. SURGEON: Jesus Bautista DO VULCANIZING MACHINE OPERATOR: Steff Bethea CNM HISTORY: Juhi is a 35-year-old, 3, para 3-0-0-3 now, who underwent a stat repeat section under general anesthesia on 08/19/2020 due to a prolapsed cord and thick meconium fluid. Surgery was uncomplicated. She did deliver a live male that weighed 8 pounds, 3 ounces, scores 2, 4, and 8. Estimated blood loss 700 mL. Her postoperative course has been uncomplicated. She has been out of bed for self-care, perineal care, and infant care. She is tolerating by mouth fluids and a regular diet. She is voiding without difficulty, passing flatus, and her pain has been well managed with by mouth pain medications. OBJECTIVE: Temperature 98.1, pulse 98, respirations 18, blood pressure is 112/68. Preoperative CBC: Hemoglobin 12.5, hematocrit 39.9, and platelets 280. Postoperative CBC: Hemoglobin 8, hematocrit 26.6, platelets 215. She does deny headache, dizziness, heart palpitations. Her breasts are soft, nontender, nipples are intact. Abdomen: Fundus firm at one finger breadth below umbilicus. The incision has Steri-Strips in place, there is no drainage, no edema, and no redness noted. Perineum is intact. Lochia rubra scant. Bilateral lower extremities with trace pitting edema. PLAN: Discharge the patient to home today. She is to followup at [facility] for a 2 week incision check and an 8 week visit. I did review discharge instructions that include breast care, incision care, perineal care, pelvic rest, activity and lifting restrictions, access to care, and danger signs to report to her provider. Prescription for ibuprofen and Percocet have been prescribed for her to take to her pharmacy.
== END 2020-08-22 17:40 | disposition home or self-care (01) | DRG 773 ==
LOC: M LDI 23:04 → M OBS 08-20 05:46
PROVIDERS: ADMIT Advanced Practice Midwife; ATTEND Obstetrics & Gynecology
PROC: 3E033VJ Introduction of Other Hormone into Peripheral Vein, Percutaneous Approach (ICD-10-PCS; 2020-08-20)
PROC: 10907ZC Drainage of Amniotic Fluid, Therapeutic from Products of Conception, Via Natural or Artificial Opening (ICD-10-PCS; 2020-08-20)
PROC: 10D00Z1 Extraction of Products of Conception, Low, Open Approach (ICD-10-PCS; principal; 2020-08-20 04:33)
DX: O34.211 Maternal care for low transverse scar from previous cesarean delivery (principal); Z3A.40 40 weeks gestation of pregnancy; Z37.0 Single live birth; O48.0 Post-term pregnancy; O76 Abnormality in fetal heart rate and rhythm complicating labor and delivery; O77.0 Labor and delivery complicated by meconium in amniotic fluid; O69.0XX0 Labor and delivery complicated by prolapse of cord, not applicable or unspecified; O66.41 Failed attempted vaginal birth after previous cesarean delivery

== ENCOUNTER → 2020-11-08 | Outpatient (REF) | payer OTHER ==
[2020-11-08 15:49] LABS: FREE T3 5.2 PG/ML (2.2-4.0); FREE THYROXINE INDEX 3.2 % (1.3-4.8); T UPTAKE 34 % (30-39); THYROXINE (T4) 9.5 UG/DL (4.5-12.0)
[2020-11-08 15:54] LABS: THYROGLOBULIN ANTIBODY < 15.0 U/ML (<60.0); TOTAL T3 204.7 NG/DL (60.0-181.0)
[2020-11-12 10:07] LABS: THRYOGLOBULIN ANTIBODIES (ATA) < 1.0 IU/mL (0.0-0.9); THYROGLOBULIN QUANTITATIVE 64.6 ng/mL (1.5-38.5)
== END ==
LOC: M PLALAB 13:50
PROVIDERS: ATTEND Advanced Practice Midwife
DX: E04.9 Nontoxic goiter, unspecified (principal)

== ENCOUNTER → 2020-11-08 | Outpatient (CLI) | payer OTHER ==
--- NOTE | 2020-11-08 16:15 | REP ---
INDICATION: GOITER. COMPARISON: None. TECHNIQUE: Standard grayscale and color imaging techniques FINDINGS: Right lobe of the thyroid measures 7.3 x 3.3 x 4.7 cm and the left lobe 5.9 x 1.4 x 1.9 cm. Both lobes are heterogeneous throughout and have multiple nodules. Isthmus has a thickness of 3.5 mm. The right side largest nodule measures 4.5 x 3.9 x 3 cm and is predominantly cystic. It has some nodular components marginally. Another complex nodule 2.6 x 2.2 x 1.7 cm is seen above this and is solid and cystic, predominantly solid. Few scattered echogenic foci representing some calcifications noted The left lobe has numerous nodules and the 3 largest include a complex predominantly cystic nodule 1.3 x 1 x 0.9 cm in the upper pole. In the midpole region posteriorly is a 1.1 x 1.1 x 1 cm nodule which is predominantly solid and there is another complex nodule 1.5 x 1.3 x 1 cm also in the midpole with 1 small peripheral cystic area. Color imaging is fairly symmetric. IMPRESSION: 1. Multinodular goiter with the right lobe 7.3 cm, left lobe 5.9 cm and multiple complex and solid nodules evident. Largest of these is in the right lobe 4.5 x 3 x 3.9 cm and predominantly cystic with multiple nodules throughout and no true normal appearing area of the thyroid. See details above. <Electronically signed by Rosendo Richardson > 11/08/20 [id number]
== END ==
LOC: M RAD 13:21
PROVIDERS: ATTEND Advanced Practice Midwife
DX: E04.9 Nontoxic goiter, unspecified (principal)

== ENCOUNTER → 2020-12-02 | Outpatient (REF) | payer OTHER ==
[2020-12-02 14:42] LABS: FREE T4 1.17 NG/DL (0.76-1.46); THYROID STIMULATING HORMONE < 0.005 uIU/ML (0.358-3.740)
== END ==
LOC: M PLALAB 13:27
PROVIDERS: ATTEND Internal Medicine
DX: E05.00 Thyrotoxicosis with diffuse goiter without thyrotoxic crisis or storm (principal)

== ENCOUNTER 2020-12-04 14:01 | Emergency (ER) | payer OTHER ==
[~2020-12-04] VITALS: Ht 160 cm; Wt 98.9 kg
--- NOTE | 2020-12-04 14:56 | REP ---
INDICATION: CHEST PAIN. COMPARISON: None. TECHNIQUE: Single portable AP view of the chest was performed. FINDINGS: There is no acute infiltrate or pulmonary edema. Lungs are clear. The heart is not significantly enlarged. The mediastinal silhouette is unremarkable. The visualized osseous structures are intact. IMPRESSION: No acute pulmonary disease. <Electronically signed by Clayton Mckeon > 12/04/20 [id number]
[2020-12-04 15:20] LABS: BASO # 0.1 10^3/uL (0.0-0.2); BASO % 0.8 % (0.0-1.0); EOS # 0.4 10^3/uL (0.0-0.5); EOS % 4.5 % (0.0-3.0); HEMATOCRIT 41.6 % (36.0-47.0); HEMOGLOBIN 12.5 g/dl (12.0-15.5); LYMPH # 2.5 10^3/uL (1.5-5.0); LYMPH % 27.3 % (24.0-44.0); MEAN CORPUSCULAR HEMOGLOBIN 22.4 pg (27.0-33.0); MEAN CORPUSCULAR VOLUME 74.7 fl (80.0-96.0); MONO # 0.6 10^3/uL (0.0-0.8); MONO % 6.2 % (2.0-8.0); NEUTROPHILS # 5.7 10^3/uL (1.5-8.5); PLATELET COUNT, AUTOMATED 349 10^3/uL (150-450); RED BLOOD COUNT 5.57 10^6/uL (4.00-5.40); WHITE BLOOD COUNT 9.3 10^3/uL (4.0-10.0)
[2020-12-04 15:56] LABS: BLOOD UREA NITROGEN 14 MG/DL (7-18); CALCIUM LEVEL 9.5 MG/DL (8.5-10.1); CARBON DIOXIDE LEVEL 28 MEQ/L (21-32); CHLORIDE LEVEL 107 MEQ/L (98-107); CREATININE FOR GFR 0.61 MG/DL (0.55-1.30); GLOMERULAR FILTRATION RATE > 60.0 (>60); GLUCOSE, FASTING 108 MG/DL (70-100); POTASSIUM SERUM 3.9 MEQ/L (3.5-5.1); SODIUM LEVEL 139 MEQ/L (136-145); THYROID STIMULATING HORMONE < 0.005 uIU/ML (0.358-3.740)
[2020-12-04 16:09] LABS: ERYTHROCYTE SEDIMENTATION RATE 4 mm/hr (0-20)
[2020-12-04 17:37] LABS: PARTIAL THROMBOPLASTIN TIME 21.6 SECONDS (24.2-38.5)
[2020-12-04 17:39] LABS: D-DIMER QUANT 544.35 ng/ml (<500)
[2020-12-04 17:47] LABS: INR 0.9; PROTHROMBIN TIME 12.3 SECONDS (12.5-14.3)
[2020-12-04 17:56] LABS: HCG, SERUM QUALITATIVE NEGATIVE (NEGATIVE)
[2020-12-04 18:00] LABS: ALBUMIN 3.9 GM/DL (3.2-5.2); ALT/SGPT 21 U/L (12-78); BILIRUBIN,DIRECT < 0.1 MG/DL (0.0-0.2); BILIRUBIN,TOTAL 0.2 MG/DL (0.2-1.0); C REACTIVE PROTEIN QUANTITATIV 0.42 MG/DL (0.00-0.30); CK-MB VALUE MASS < 1.0 NG/ML (<3.6); CPK CREATINE PHOSPHOKINASE 84 U/L (26-192); LIPASE 83 U/L (73-393); MB/CK RELATIVE INDEX 1.19 (< OR =4); NT-PRO BNP 55 PG/ML (<125); TOTAL PROTEIN 7.5 GM/DL (6.4-8.2); TROPONIN I < 0.02 NG/ML (< 0.10)
[2020-12-04] MEDS ORDERED: ISOVUE-370 76% 100ML VIAL As Ordered ONE (18:28)
--- NOTE | 2020-12-04 19:51 | REPVR ---
PROCEDURE INFORMATION: Exam: CTA Chest With Contrast Exam date and time: 12/04/2020 6:53 PM Age: 35 years old Clinical indication: Chest pain TECHNIQUE: Imaging protocol: Computed tomographic angiography of the chest with contrast. 3D rendering (Not supervised by radiologist): MIP and/or 3D reconstructed images were created by the technologist. Radiation optimization: All CT scans at this facility use at least one of these dose optimization techniques: automated exposure control; mA and/or kV adjustment per patient size (includes targeted exams where dose is matched to clinical indication); or iterative reconstruction. Contrast material: ISOVUE 370; Contrast volume: 75 ml; Contrast route: INTRAVENOUS (IV); COMPARISON: [facility] PORTABLE CHEST X-RAY 12/04/2020 2:29 PM FINDINGS: Pulmonary arteries: There are no pulmonary emboli. Aorta: There is no aortic dissection or aneurysm. Thyroid: Complex cystic structure in the anterior aspect of the mid thyroid gland either originating from the isthmus or anterior right lobe measuring 3.3 x 3.9 x 2.7 cm. Correlation with thyroid ultrasound suggested. Lungs: Unremarkable. No consolidation. No masses. Pleural spaces: Unremarkable. No pneumothorax. No pleural effusion. Heart: Unremarkable. No cardiomegaly. No pericardial effusion. Mediastinal space: Thymic tissue demonstrated in the anterior superior aspect of the mediastinum. Possibility of thymoma to be excluded clinically. Lymph nodes: Unremarkable. No enlarged lymph nodes. Gallbladder and bile ducts: Polypoid density in the gallbladder measures 5 mm. Finding may represent a gallbladder polyp although incompletely evaluated on this examination dedicated to the thorax. Correlation with nonemergent gallbladder ultrasound suggested. Bones/joints: Unremarkable. No acute fracture. Soft tissues: Unremarkable. IMPRESSION: 1. Complex cystic thyroid mass as described above. Correlation with thyroid ultrasound suggested. 2. Thymic tissue demonstrated in the anterior superior aspect of the mediastinum. Possibility of thymoma to be excluded clinically. 3. There is no aortic dissection or aneurysm. 4. There are no pulmonary emboli. Electronically signed by: Tomi Starkey On 12/04/2020 19:51:29 PM
[2020-12-04 20:43] VITALS: BP 130/83
--- NOTE | 2020-12-04 23:07 | ECGEPIP ---
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
--- NOTE | 2020-12-07 16:19 | ED PDOC ---
Post-Departure Follow-Up cta chest faxed to [facility] for fu David Newton MD December 07, 2020 16:19
== END 2020-12-04 20:55 | disposition home or self-care (01) ==
LOC: M ED 14:01
DX: D38.4 Neoplasm of uncertain behavior of thymus (principal); E07.9 Disorder of thyroid, unspecified
CPT/HCPCS: 36415; 71045; 71275; 80048; 80076; 82550; 82553; 83690; 83880; 84439; 84443; 84484; 84703; 85025; 85379; 85610; 85652; 85730; 86140; 93005; 99284; Q9967

== ENCOUNTER → 2020-12-09 | Outpatient (REF) | payer OTHER | LOC: M LAB REF 14:12 | PROVIDERS: ATTEND Internal Medicine Endocrinology, Diabetes & Metabolism | DX: E04.2 Nontoxic multinodular goiter (principal) ==

== ENCOUNTER → 2021-03-17 | Outpatient (CLI) | payer OTHER ==
[~2021-03-17] MED LIST changes: +LEVO137T2 PO
[2021-03-17 11:21] LABS: FREE T4 0.54 NG/DL (0.76-1.46); THYROID STIMULATING HORMONE < 0.005 uIU/ML (0.358-3.740)
== END ==
LOC: M PLALAB 07:59
PROVIDERS: ATTEND Internal Medicine
DX: E05.00 Thyrotoxicosis with diffuse goiter without thyrotoxic crisis or storm (principal)

== ENCOUNTER → 2021-03-28 | Outpatient (CLI) | payer OTHER ==
[~2021-03-28] MED LIST changes: -LEVO137T2 PO
== END ==
LOC: M LABSMTC 12:49
PROVIDERS: ATTEND Student in an Organized Health Care Education/Training Program
DX: Z20.828 Contact with and (suspected) exposure to other viral communicable diseases (principal); Z11.59 Encounter for screening for other viral diseases

== ENCOUNTER 2021-04-14 20:37 | Emergency (ER) | payer OTHER ==
[~2021-04-14] VITALS: Ht 160 cm; Wt 103.3 kg
[2021-04-14] MEDS ORDERED: LEVO137T2 PO (20:59)
[2021-04-14 22:40] VITALS: BP 135/87
[2021-04-14 23:14] LABS: RSV AMPLIFICATION NEGATIVE (NEGATIVE)
== END 2021-04-14 23:32 | disposition home or self-care (01) ==
LOC: M ED 20:37
DX: Z20.822 Contact with and (suspected) exposure to COVID-19 (principal); R50.9 Fever, unspecified

== ENCOUNTER → 2021-04-16 | Outpatient (CLI) | payer OTHER ==
[~2021-04-16] MED LIST changes: +LEVO137T2 PO
== END ==
LOC: M LABSMTC 11:49
PROVIDERS: ATTEND Family Medicine
DX: Z20.822 Contact with and (suspected) exposure to COVID-19 (principal)
CPT/HCPCS: C9803; U0003

== ENCOUNTER → 2021-06-26 | Outpatient (CLI) | payer OTHER ==
[2021-06-26 13:57] LABS: FREE T4 1.2 NG/DL (0.76-1.46); THYROID STIMULATING HORMONE 0.133 uIU/ML (0.358-3.740)
== END ==
LOC: M PLALAB 11:25
PROVIDERS: ATTEND Nurse Practitioner Family
DX: E89.0 Postprocedural hypothyroidism (principal)

== ENCOUNTER → 2021-10-06 | Outpatient (CLI) | payer OTHER ==
[2021-10-06 10:52] LABS: FREE T4 0.87 NG/DL (0.76-1.46); THYROID STIMULATING HORMONE 3.32 uIU/ML (0.358-3.740)
== END ==
LOC: M PLALAB 07:45
PROVIDERS: ATTEND Nurse Practitioner Family
DX: E89.0 Postprocedural hypothyroidism (principal)

== ENCOUNTER → 2022-02-18 | Outpatient (CLI) | payer OTHER ==
[2022-02-18 16:24] LABS: FREE T4 1.21 NG/DL (0.76-1.46); THYROID STIMULATING HORMONE 2.84 uIU/ML (0.358-3.740)
== END ==
LOC: M PLALAB 13:58
PROVIDERS: ATTEND Nurse Practitioner Family
DX: E89.0 Postprocedural hypothyroidism (principal)

== ENCOUNTER → 2022-08-25 | Outpatient (CLI) | payer OTHER ==
[2022-08-25 14:06] LABS: THYROID STIMULATING HORMONE 8.064 uIU/ML (0.55-4.78)
[2022-08-25 14:10] LABS: FREE T4 0.98 NG/DL (0.89-1.76)
== END ==
LOC: M PLALAB 11:09
PROVIDERS: ATTEND Nurse Practitioner Family
DX: E89.0 Postprocedural hypothyroidism (principal)

== ENCOUNTER → 2022-09-30 | Outpatient (CLI) | payer OTHER ==
[2022-09-30 14:09] LABS: FREE T4 1.33 NG/DL (0.89-1.76)
[2022-09-30 14:10] LABS: THYROID STIMULATING HORMONE 6.095 uIU/ML (0.55-4.78)
== END ==
LOC: M PLALAB 09:56
PROVIDERS: ATTEND Nurse Practitioner Family
DX: E89.0 Postprocedural hypothyroidism (principal)

== ENCOUNTER → 2022-10-20 | Outpatient (CLI) | payer OTHER ==
[2022-10-20 14:06] LABS: HEMATOCRIT 43.5 % (36.0-47.0); HEMOGLOBIN 14.3 g/dl (12.0-15.5); MEAN CORPUSCULAR HEMOGLOBIN 29.5 pg (27.0-33.0); MEAN CORPUSCULAR HGB CONC 32.9 g/dl (32.0-36.5); MEAN CORPUSCULAR VOLUME 89.7 fl (80.0-96.0); PLATELET COUNT, AUTOMATED 307 10^3/uL (150-450); RED BLOOD COUNT 4.85 10^6/uL (4.00-5.40); WHITE BLOOD COUNT 10.1 10^3/uL (4.0-10.0)
[2022-10-20 15:06] LABS: HIV 1&2 SCREEN CENTAUR NEGATIVE (NEGATIVE)
[2022-10-21 16:14] LABS: GC DNA AMPLIFICATION NEGATIVE (NEGATIVE)
== END ==
LOC: M PLALAB 09:13
PROVIDERS: ATTEND Specialist
DX: Z34.81 Encounter for supervision of other normal pregnancy, first trimester (principal)

== ENCOUNTER → 2022-11-16 | Outpatient (CLI) | payer OTHER ==
[2022-11-16 13:41] LABS: FREE T4 1.07 NG/DL (0.89-1.76); THYROID STIMULATING HORMONE 5.366 uIU/ML (0.55-4.78)
== END ==
LOC: M PLALAB 10:22
PROVIDERS: ATTEND Nurse Practitioner Family
DX: E89.0 Postprocedural hypothyroidism (principal)
CPT/HCPCS: 36415; 84439; 84443; G0463

== ENCOUNTER → 2022-12-14 | Outpatient (CLI) | payer OTHER ==
[2022-12-14 12:13] LABS: FREE T4 1.23 NG/DL (0.89-1.76); THYROID STIMULATING HORMONE 2.564 uIU/ML (0.55-4.78)
== END ==
LOC: M PLALAB 08:25
PROVIDERS: ATTEND Internal Medicine Endocrinology, Diabetes & Metabolism
DX: E89.0 Postprocedural hypothyroidism (principal)
CPT/HCPCS: 36415; 84439; 84443; G0463

== ENCOUNTER → 2022-12-29 | Outpatient (CLI) | payer OTHER | LOC: M WHC 09:26 | PROVIDERS: ATTEND Obstetrics & Gynecology | DX: Z34.92 Encounter for supervision of normal pregnancy, unspecified, second trimester (principal); Z3A.20 20 weeks gestation of pregnancy ==

== ENCOUNTER → 2023-01-22 | Outpatient (CLI) | payer OTHER | LOC: M WHC 07:12 | PROVIDERS: ATTEND Advanced Practice Midwife | DX: Z34.92 Encounter for supervision of normal pregnancy, unspecified, second trimester (principal) ==